=== PATIENT | male | born 1955 | race African-American/Black ===

== ENCOUNTER 2017-08-24 08:17 | Inpatient (IN) ==
[2017-08-24] MEDS ORDERED: DILTIAZEM 50 MG/10 ML VIAL IV STA (08:42)
[2017-08-24] MEDS ORDERED: SODIUM CHLORIDE 0.9% 500 ML IV STA (08:44)
[2017-08-24] MEDS ORDERED: DILTIAZEM 100 MG VIAL.ADD IV ONE (08:45)
[2017-08-24] MEDS ORDERED: MAGNESIUM SULF RIDER 50 ML IV ONE (08:46)
[2017-08-24] MEDS ORDERED: SODIUM CHLORIDE 0.9% 100 ML IV ONE (08:46)
[2017-08-24 08:52] LABS: Basophils % 0.4 % (0.0-0.8); Eosinophils % 0.6 % (0.00-10.9); Hematocrit 37.9 VOL% (42.0-52.0); Hemoglobin 13.1 GM/DL (14.0-18.0); Immature Granulocytes % 0.8 %; Immature Granulocytes Absolute 0.04 #; Lymphocytes # 1.8 10*3/uL (1.4-4.0); Lymphocytes % 36.6 % (21.2-54.2); Mean Corpuscular HGB Conc 34.6 GM/DL (32-36); Mean Corpuscular Hemoglobin 33 PG (27-34); Mean Corpuscular Volume 95.5 FL (87-102); Mean Platelet Volume 12.1 FL (9.6-12.0); Monocytes # 0.9 10*3/uL (0.11-0.8); Monocytes % 18.1 % (1.7-12.7); NRBC # 0.06 10*3/uL; Neutrophils # 2.1 10*3/uL (1.4-7.4); Neutrophils % 43.5 % (38.7-73.9); Platelet Count 70 T/CUMM (130-400); Red Blood Count 3.97 MC/CUMM (3.8-5.5); Red Cell Distribution Width 15.9 % (9.3-17.3); White Blood Count 4.9 T/CUMM (4-12)
[2017-08-24] MEDS ORDERED: MAGNESIUM SULF RIDER 2 GM in PREMIX 1 EACH IV STA (08:52)
[2017-08-24 09:00] LABS: PT Patient Result 10.7 SECS; Partial Thromboplastin Time 24.6 SECS (0-40)
[2017-08-24] MEDS: DILTIAZEM INJ 100 MG in SODIUM CHLORIDE 0.9% 100 ML IV SCH ×2 (09:06→19:30)
[2017-08-24 09:15] LABS: Apearance,Urine Slightly Hazy (Clear); Bacteria,Urine Occasional /HPF (Few); Blood, Urine Negative (Negative); Glucose,Urine (UA) Negative (Negative); Hyaline Casts,Urine 78 /LPF (0-3); Ketones,Urine 5 mg/dL (Negative); Mucus,Urine Occasional /LPF (Occasional); Nitrite,Urine Negative (Negative); Protein,Urine 100 MG/DL; RBC,Urine 6 /HPF (0-4); Squamous Epithelial Cell,Urine Occasional /HPF (0-10); Urine Color Amber (Yellow); Urine Specific Gravity 1.023 (1.001-1.035); WBC,Urine 23 /HPF (0-6)
[2017-08-24 09:16] LABS: Bilirubin,Urine Small mg/dL (Negative)
[2017-08-24 09:23] LABS: Band Neutrophils 3 % (0-10); Lymphocytes 35 % (20-55); Nucleated Red Blood Cells 3 (0-5); Total Cells Counted 100
[2017-08-24 09:24] LABS: Anisocytosis Slight; Macrocytosis Slight; Platelet Estimate Decreased; Segmented Neutrophils 43 % (50-85); Smudge Cells Few
[2017-08-24 09:29] LABS: Barbiturates Screen,Urine Negative (Negative); Benzodiazepines Screen,Urine Negative (Negative); Cannabinoid Screen,Urine Negative (Negative); Opiate Screen,Urine Negative (Negative); Phencyclidine Screen,Urine Negative (Negative)
[2017-08-24 09:31] LABS: Alanine Aminotransferase 54 U/L (16-61); Albumin 3.4 G/DL (3.4-5.0); Alkaline Phosphatase 158 U/L (45-117); Aspartate Amino Transferase 67 U/L (0-37); Blood Urea Nitrogen 16 MG/DL (7-18); Calcium 8.9 MG/DL (8.5-10.1); Glucose 114 MG/DL (74-106); Osmolality,Calculated 276.7 MOS/KG (273-304); Potassium 2.7 MMOL/L (3.5-5.1); Sodium 138 MMOL/L (136-145); Total Protein 7.4 G/DL (6.4-8.3); Troponin I Only < 0.015 NG/ML (0.00-0.045)
[2017-08-24] MEDS ORDERED: POTASSIUM CHLORIDE 20 MEQ TABLET PO STA (09:48)
[2017-08-24] MEDS ORDERED: FLUTICASONE/SALMETEROL 250-50 DISKUS 14 DOSE INH PRN (10:15)
[2017-08-24] MEDS ORDERED: DOCUSATE SODIUM 100 MG CAPSULE PO PRN (10:16)
[2017-08-24] MEDS ORDERED: ACETAMINOPHEN 325 MG TABLET PO PRN (10:16)
[2017-08-24] MEDS ORDERED: ONDANSETRON 4 MG/2 ML VIAL IV PRN (10:16)
[2017-08-24] MEDS ORDERED: diphenhydrAMINE CAP 25 MG CAPSULE PO PRN (10:16)
[2017-08-24] MEDS ORDERED: guaiFENesin/DM ER 600-30 MG TABLET PO PRN (10:16)
[2017-08-24] MEDS ORDERED: MAGNESIUM SULF RIDER 4 GM in PREMIX 1 EACH IV PRN (10:29)
[2017-08-24] MEDS ORDERED: ENOXAPARIN 30 MG/0.3 ML SYRINGE SUBCUT SCH (10:30)
[2017-08-24] MEDS: LEVOFLOXACIN INJ 750 MG in PREMIX 1 EACH IV SCH (11:03)
[2017-08-24] MEDS: amLODIPine 10 MG TABLET PO SCH (11:04)
[2017-08-24] MEDS: methylPREDNISolone SOD SUC 40 MG/1 ML VIAL IV SCH (11:04)
[2017-08-24] MEDS: SODIUM CHLORIDE 0.9% 1,000 ML IV SCH ×2 (11:04→17:40)
[2017-08-24] MEDS: PANTOPRAZOLE 40 MG TABLET PO SCH (11:04)
[2017-08-24] MEDS ORDERED: LORazepam 2 MG/1 ML VIAL IV PRN (14:55)
[2017-08-24] MEDS ORDERED: THIAMINE INJ 100 MG, FOLIC ACID INJ 1 MG, MULTIVITAMIN INJ 10 ML in SODIUM CHLORIDE 0.9... IV SCH (15:00)
[2017-08-24] MEDS: POTASSIUM CHLORIDE 20 MEQ TABLET PO PRN ×2 (15:13→17:27)
[2017-08-24] MEDS: MAGNESIUM SULF RIDER 2 GM in PREMIX 1 EACH IV PRN (15:14)
[2017-08-24] MEDS: ENOXAPARIN 80 MG/0.8 ML SYRINGE SUBCUT SCH (16:48)
[2017-08-24] MEDS: ASPIRIN EC 81 MG TABLET PO SCH (16:48)
[2017-08-24] MEDS: ALBUTEROL 2.5 MG/3 ML NEB RESP TX SCH ×3 (16:59→23:44)
[2017-08-24 17:24] LABS: Troponin I Only < 0.015 NG/ML (0.00-0.045)
[2017-08-24 17:25] LABS: Troponin I Only < 0.015 NG/ML (0.00-0.045)
[2017-08-24] MEDS ORDERED: amLODIPine 5 MG TABLET PO SCH (21:00)
[2017-08-24] MEDS: ASCORBIC ACID 500 MG TABLET PO SCH (21:10)
[2017-08-25] MEDS: methylPREDNISolone SOD SUC 40 MG/1 ML VIAL IV SCH ×2 (00:45→09:51)
[2017-08-25] MEDS: SODIUM CHLORIDE 0.9% 1,000 ML IV SCH ×2 (02:00→09:51)
[2017-08-25] MEDS: ALBUTEROL 2.5 MG/3 ML NEB RESP TX SCH ×6 (03:26→23:54)
[2017-08-25 04:29] LABS: Hematocrit 32.4 VOL% (42.0-52.0); Hemoglobin 10.8 GM/DL (14.0-18.0); Immature Granulocytes % 1.1 %; Immature Granulocytes Absolute 0.04 #; Lymphocytes # 0.5 10*3/uL (1.4-4.0); Lymphocytes % 14.8 % (21.2-54.2); Mean Corpuscular HGB Conc 33.3 GM/DL (32-36); Mean Corpuscular Hemoglobin 33 PG (27-34); Mean Corpuscular Volume 98.5 FL (87-102); Mean Platelet Volume 11.9 FL (9.6-12.0); Monocytes # 0.3 10*3/uL (0.11-0.8); Monocytes % 9.3 % (1.7-12.7); NRBC # 0.02 10*3/uL; Neutrophils # 2.7 10*3/uL (1.4-7.4); Neutrophils % 74.8 % (38.7-73.9); Platelet Count 62 T/CUMM (130-400); Red Blood Count 3.29 MC/CUMM (3.8-5.5); Red Cell Distribution Width 16.1 % (9.3-17.3); White Blood Count 3.7 T/CUMM (4-12)
[2017-08-25] MEDS: ENOXAPARIN 80 MG/0.8 ML SYRINGE SUBCUT SCH ×2 (04:54→15:17)
[2017-08-25 04:58] LABS: Albumin 2.9 G/DL (3.4-5.0); Bilirubin,Direct 0.39 MG/DL (0.0-0.20); Bilirubin,Indirect 0.4 MG/DL (0.0-1.0); Bilirubin,Total 0.8 MG/DL (0.2-1.0); Total Protein 6.6 G/DL (6.4-8.3)
[2017-08-25 05:01] LABS: Hypochromasia 1+; Platelet Estimate Decreased; Troponin I Only < 0.015 NG/ML (0.00-0.045)
[2017-08-25 05:02] LABS: Macrocytosis Slight
[2017-08-25 05:08] LABS: Osmolality,Calculated 278.5 MOS/KG (273-304); Potassium 4.6 MMOL/L (3.5-5.1); VLDL CHOLESTEROL 13.4 MG/DL
[2017-08-25 05:09] LABS: Risk Ratio 2.48; Thyroid Stimulating Hormone 0.269 uIU/ml (0.358-3.74)
[2017-08-25] MEDS: amLODIPine 10 MG TABLET PO SCH (08:54)
[2017-08-25] MEDS: PANTOPRAZOLE 40 MG TABLET PO SCH (08:55)
[2017-08-25] MEDS: ASPIRIN EC 81 MG TABLET PO SCH (08:55)
[2017-08-25] MEDS: ASCORBIC ACID 500 MG TABLET PO SCH ×2 (08:55→20:37)
[2017-08-25] MEDS: DILTIAZEM INJ 100 MG in SODIUM CHLORIDE 0.9% 100 ML IV SCH (08:56)
[2017-08-25] MEDS: LEVOFLOXACIN INJ 750 MG in PREMIX 1 EACH IV SCH (09:52)
[2017-08-25] MEDS ORDERED: DILTIAZEM 60 MG TABLET PO SCH (13:00)
[2017-08-25 14:04] LABS: Hepatitis A Ab IgM Quant 0.18 Index; Hepatitis A Ab IgM Result Negative (Negative); Hepatitis B Core IgM Quant 0.29 Index; Hepatitis B Core IgM Result Negative (Negative); Hepatitis B Surface Ag Quant < 0.10 Index; Hepatitis B Surface Ag Result Negative (Negative); Hepatitis C Virus Ab Quant 0.16 Index; Hepatitis C Virus Ab Result Negative (Negative)
[2017-08-25] MEDS: chlordiazePOXIDE 25 MG CAPSULE PO SCH ×2 (15:16→20:37)
[2017-08-25] MEDS: LEVOFLOXACIN 750 MG TABLET PO SCH (17:23)
[2017-08-25] MEDS: 1: THIAMINE INJ 100 MG, FOLIC ACID INJ 1 MG, MULTIVITAMIN INJ 10 ML in SODIUM CHLORIDE 0 IV SCH (18:30)
[2017-08-25] MEDS: predniSONE 10 MG TABLET PO SCH (20:37)
[2017-08-25] MEDS: METOPROLOL TARTRATE 50 MG TABLET PO SCH (20:37)
[2017-08-26] MEDS: MORPHINE 4 MG/1 ML VIAL IV PRN ×3 (00:01→15:42)
[2017-08-26] MEDS: ALBUTEROL 2.5 MG/3 ML NEB RESP TX SCH ×6 (02:58→23:06)
[2017-08-26] MEDS ORDERED: MORPHINE 4 MG/1 ML VIAL IV ONE (03:19)
[2017-08-26] MEDS: 1: THIAMINE INJ 100 MG, FOLIC ACID INJ 1 MG, MULTIVITAMIN INJ 10 ML in SODIUM CHLORIDE 0 IV SCH ×2 (04:10→12:43)
[2017-08-26 04:59] LABS: Hematocrit 30.7 VOL% (42.0-52.0); Hemoglobin 10.5 GM/DL (14.0-18.0); Immature Granulocytes % 1.3 %; Immature Granulocytes Absolute 0.05 #; Lymphocytes # 0.5 10*3/uL (1.4-4.0); Lymphocytes % 12.6 % (21.2-54.2); Mean Corpuscular HGB Conc 34.2 GM/DL (32-36); Mean Corpuscular Hemoglobin 34 PG (27-34); Mean Corpuscular Volume 98.1 FL (87-102); Mean Platelet Volume 11.7 FL (9.6-12.0); Monocytes # 0.5 10*3/uL (0.11-0.8); Monocytes % 12.4 % (1.7-12.7); NRBC # 0.04 10*3/uL; Neutrophils # 2.9 10*3/uL (1.4-7.4); Neutrophils % 73.7 % (38.7-73.9); Platelet Count 67 T/CUMM (130-400); Red Blood Count 3.13 MC/CUMM (3.8-5.5); Red Cell Distribution Width 16.5 % (9.3-17.3); White Blood Count 3.9 T/CUMM (4-12)
[2017-08-26 05:31] LABS: Calcium 7.8 MG/DL (8.5-10.1); Osmolality,Calculated 277.7 MOS/KG (273-304); Potassium 4.7 MMOL/L (3.5-5.1)
[2017-08-26 05:57] LABS: Platelet Estimate Decreased; Polychromasia Few
[2017-08-26 05:58] LABS: Target Cells Slight
[2017-08-26] MEDS: PANTOPRAZOLE 40 MG TABLET PO SCH (08:57)
[2017-08-26] MEDS: ASPIRIN EC 81 MG TABLET PO SCH (08:57)
[2017-08-26] MEDS: chlordiazePOXIDE 25 MG CAPSULE PO SCH ×3 (08:57→21:09)
[2017-08-26] MEDS: predniSONE 10 MG TABLET PO SCH ×2 (08:57→21:09)
[2017-08-26] MEDS: METOPROLOL TARTRATE 50 MG TABLET PO SCH ×2 (08:57→21:09)
[2017-08-26] MEDS: ASCORBIC ACID 500 MG TABLET PO SCH ×2 (08:57→21:09)
[2017-08-26] MEDS ORDERED: amLODIPine 5 MG TABLET PO SCH (09:00)
[2017-08-26] MEDS ORDERED: DILTIAZEM CD 120 MG CAPSULE PO SCH (12:00)
[2017-08-26] MEDS: DILTIAZEM 30 MG TABLET PO SCH ×4 (12:45→21:09)
[2017-08-26] MEDS: MAGNESIUM OXIDE 400 MG TABLET PO SCH ×2 (12:46→21:09)
[2017-08-26] MEDS: LEVOFLOXACIN 750 MG TABLET PO SCH (17:11)
[2017-08-26 19:43] LABS: Total Protein 6.4 G/DL (6.4-8.3)
[2017-08-27] MEDS: ALBUTEROL 2.5 MG/3 ML NEB RESP TX SCH ×6 (02:10→22:50)
[2017-08-27 05:37] LABS: Basophils % 0.2 % (0.0-0.8); Immature Granulocytes % 1.7 %; Immature Granulocytes Absolute 0.09 #; Lymphocytes # 0.5 10*3/uL (1.4-4.0); Lymphocytes % 9.1 % (21.2-54.2); Mean Corpuscular HGB Conc 33.3 GM/DL (32-36); Mean Corpuscular Hemoglobin 33 PG (27-34); Mean Corpuscular Volume 99.7 FL (87-102); Mean Platelet Volume 11.3 FL (9.6-12.0); Monocytes # 0.8 10*3/uL (0.11-0.8); Monocytes % 14.1 % (1.7-12.7); NRBC # 0.03 10*3/uL; Neutrophils % 74.9 % (38.7-73.9); Red Blood Count 3.01 MC/CUMM (3.8-5.5); Red Cell Distribution Width 16.4 % (9.3-17.3); White Blood Count 5.4 T/CUMM (4-12)
[2017-08-27 05:41] LABS: Platelet Count 81 T/CUMM (130-400)
[2017-08-27 06:10] LABS: Hypochromasia 1+; Platelet Estimate Decreased
[2017-08-27 06:13] LABS: Calcium 8.2 MG/DL (8.5-10.1); Osmolality,Calculated 281.4 MOS/KG (273-304); Potassium 4.8 MMOL/L (3.5-5.1)
[2017-08-27] MEDS: predniSONE 10 MG TABLET PO SCH ×2 (09:39→20:57)
[2017-08-27] MEDS: METOPROLOL TARTRATE 50 MG TABLET PO SCH ×2 (09:39→20:57)
[2017-08-27] MEDS: MAGNESIUM OXIDE 400 MG TABLET PO SCH ×2 (09:39→20:56)
[2017-08-27] MEDS: ASPIRIN EC 81 MG TABLET PO SCH (09:39)
[2017-08-27] MEDS: ASCORBIC ACID 500 MG TABLET PO SCH ×2 (09:39→20:56)
[2017-08-27] MEDS: chlordiazePOXIDE 25 MG CAPSULE PO SCH ×3 (09:39→20:56)
[2017-08-27] MEDS: PANTOPRAZOLE 40 MG TABLET PO SCH (09:39)
[2017-08-27] MEDS: DILTIAZEM 30 MG TABLET PO SCH ×4 (09:39→20:57)
[2017-08-27] MEDS: 1: THIAMINE INJ 100 MG, FOLIC ACID INJ 1 MG, MULTIVITAMIN INJ 10 ML in SODIUM CHLORIDE 0 IV SCH ×2 (13:11→20:56)
[2017-08-27] MEDS: LEVOFLOXACIN 750 MG TABLET PO SCH (16:29)
[2017-08-28] MEDS: 1: THIAMINE INJ 100 MG, FOLIC ACID INJ 1 MG, MULTIVITAMIN INJ 10 ML in SODIUM CHLORIDE 0 IV SCH ×3 (02:20→16:28)
[2017-08-28 02:32] LABS: Basophils % 0.2 % (0.0-0.8); Eosinophils % 0.6 % (0.00-10.9); Hematocrit 27.4 VOL% (42.0-52.0); Immature Granulocytes % 1.5 %; Immature Granulocytes Absolute 0.07 #; Lymphocytes # 0.7 10*3/uL (1.4-4.0); Lymphocytes % 14.8 % (21.2-54.2); Mean Corpuscular HGB Conc 32.8 GM/DL (32-36); Mean Corpuscular Hemoglobin 33 PG (27-34); Mean Corpuscular Volume 100.4 FL (87-102); Monocytes # 0.8 10*3/uL (0.11-0.8); Monocytes % 17.6 % (1.7-12.7); NRBC # 0.03 10*3/uL; Neutrophils # 3.1 10*3/uL (1.4-7.4); Neutrophils % 65.3 % (38.7-73.9); Platelet Count 95 T/CUMM (130-400); Red Blood Count 2.73 MC/CUMM (3.8-5.5); Red Cell Distribution Width 16.2 % (9.3-17.3); White Blood Count 4.7 T/CUMM (4-12)
[2017-08-28] MEDS: ALBUTEROL 2.5 MG/3 ML NEB RESP TX SCH ×5 (02:39→20:17)
[2017-08-28 02:56] LABS: Albumin 2.7 G/DL (3.4-5.0); Bilirubin,Total 0.6 MG/DL (0.2-1.0); Calcium 8.7 MG/DL (8.5-10.1); Osmolality,Calculated 283.4 MOS/KG (273-304); Potassium 4.8 MMOL/L (3.5-5.1); Total Protein 6.3 G/DL (6.4-8.3)
[2017-08-28] MEDS: MAGNESIUM SULF RIDER 2 GM in PREMIX 1 EACH IV PRN (03:36)
[2017-08-28 04:23] LABS: Anisocytosis 1+; Band Neutrophils 2 % (0-10); Lymphocytes 27 % (20-55); Nucleated Red Blood Cells 1 (0-5); Poikilocytosis 1+; Segmented Neutrophils 63 % (50-85); Total Cells Counted 100
[2017-08-28 04:24] LABS: Target Cells Slight
[2017-08-28] MEDS: METOPROLOL TARTRATE 50 MG TABLET PO SCH ×2 (09:16→22:07)
[2017-08-28] MEDS: ASCORBIC ACID 500 MG TABLET PO SCH ×2 (09:16→22:07)
[2017-08-28] MEDS: PANTOPRAZOLE 40 MG TABLET PO SCH (09:16)
[2017-08-28] MEDS: MAGNESIUM OXIDE 400 MG TABLET PO SCH ×2 (09:16→22:07)
[2017-08-28] MEDS: chlordiazePOXIDE 25 MG CAPSULE PO SCH ×3 (09:17→22:07)
[2017-08-28] MEDS: ASPIRIN EC 81 MG TABLET PO SCH (09:17)
[2017-08-28] MEDS: DILTIAZEM 30 MG TABLET PO SCH ×4 (09:17→22:07)
[2017-08-28] MEDS: predniSONE 10 MG TABLET PO SCH ×2 (09:17→22:07)
[2017-08-28] MEDS: LISINOPRIL 5 MG TABLET PO SCH (09:35)
[2017-08-28] MEDS: LEVOFLOXACIN 750 MG TABLET PO SCH (16:21)
[2017-08-29] MEDS: ALBUTEROL 2.5 MG/3 ML NEB RESP TX SCH ×7 (00:18→23:48)
[2017-08-29] MEDS: 1: THIAMINE INJ 100 MG, FOLIC ACID INJ 1 MG, MULTIVITAMIN INJ 10 ML in SODIUM CHLORIDE 0 IV SCH ×4 (02:29→21:05)
[2017-08-29 05:00] LABS: Basophils % 0.2 % (0.0-0.8); Eosinophils # 0.1 10*3/uL (0.0-0.87); Eosinophils % 1.2 % (0.00-10.9); Hematocrit 27.9 VOL% (42.0-52.0); Hemoglobin 9.3 GM/DL (14.0-18.0); Immature Granulocytes % 3.1 %; Immature Granulocytes Absolute 0.15 #; Lymphocytes # 0.8 10*3/uL (1.4-4.0); Lymphocytes % 17.1 % (21.2-54.2); Mean Corpuscular HGB Conc 33.3 GM/DL (32-36); Mean Corpuscular Hemoglobin 34 PG (27-34); Mean Corpuscular Volume 100.4 FL (87-102); Mean Platelet Volume 11.1 FL (9.6-12.0); Monocytes % 19.8 % (1.7-12.7); NRBC # 0.04 10*3/uL; Neutrophils # 2.8 10*3/uL (1.4-7.4); Neutrophils % 58.6 % (38.7-73.9); Platelet Count 115 T/CUMM (130-400); Red Blood Count 2.78 MC/CUMM (3.8-5.5); Red Cell Distribution Width 16.1 % (9.3-17.3); White Blood Count 4.8 T/CUMM (4-12)
[2017-08-29 05:24] LABS: Osmolality,Calculated 284.3 MOS/KG (273-304); Potassium 4.4 MMOL/L (3.5-5.1)
[2017-08-29 05:41] LABS: Band Neutrophils 1 % (0-10); Hypochromasia 1+; Lymphocytes 20 % (20-55); Myelocytes 1 %; Segmented Neutrophils 59 % (50-85); Total Cells Counted 100
[2017-08-29 05:42] LABS: Macrocytosis 1+; Platelet Estimate Adequate
[2017-08-29] MEDS: MAGNESIUM SULF RIDER 2 GM in PREMIX 1 EACH IV PRN (06:38)
[2017-08-29 07:37] LABS: Immunoglobulin A (Chem) 395 MG/DL (70-400); Immunoglobulin G (Chem) 873 MG/DL (700-1600); Immunoglobulin M (Chem) 30 MG/DL (40-230); Total Protein (Chem) 6.4 G/DL (6.4-8.3)
[2017-08-29] MEDS: LISINOPRIL 5 MG TABLET PO SCH (09:04)
[2017-08-29] MEDS: MAGNESIUM OXIDE 400 MG TABLET PO SCH ×3 (09:04→21:06)
[2017-08-29] MEDS: chlordiazePOXIDE 25 MG CAPSULE PO SCH ×3 (09:04→21:06)
[2017-08-29] MEDS: ASCORBIC ACID 500 MG TABLET PO SCH ×2 (09:04→21:06)
[2017-08-29] MEDS: predniSONE 10 MG TABLET PO SCH ×2 (09:05→21:06)
[2017-08-29] MEDS: METOPROLOL TARTRATE 50 MG TABLET PO SCH ×2 (09:05→21:06)
[2017-08-29] MEDS: DILTIAZEM 30 MG TABLET PO SCH (09:05)
[2017-08-29] MEDS: ASPIRIN EC 81 MG TABLET PO SCH (09:05)
[2017-08-29 09:59] LABS: Albumin (SPE) 3.8 G/DL (3.2-5.3); Albumin (SPE) Rel % 59.6 %; Alpha 1 (SPE) 0.2 G/DL (0.1-0.4); Alpha 1 (SPE) Rel % 2.9 %; Alpha 2 (SPE) 0.8 G/DL (0.4-1.0); Alpha 2 (SPE) Rel % 12.6 %; Beta (SPE) 0.8 G/DL (0.5-1.1)
[2017-08-29 10:00] LABS: Beta (SPE) Rel % 12.1 %; Gamma (SPE) 0.8 G/DL (0.7-1.7); Gamma (SPE) Rel % 12.8 %
[2017-08-29] MEDS: PANTOPRAZOLE 40 MG TABLET PO SCH (12:20)
[2017-08-29] MEDS ORDERED: DILTIAZEM 60 MG TABLET PO SCH (13:00)
[2017-08-29] MEDS: LISINOPRIL 10 MG TABLET PO SCH (16:24)
[2017-08-29] MEDS: LEVOFLOXACIN 750 MG TABLET PO SCH (16:37)
[2017-08-30] MEDS: ALBUTEROL 2.5 MG/3 ML NEB RESP TX SCH ×3 (03:14→10:55)
[2017-08-30 04:59] LABS: Basophils % 0.2 % (0.0-0.8); Eosinophils # 0.1 10*3/uL (0.0-0.87); Eosinophils % 1.1 % (0.00-10.9); Hematocrit 27.1 VOL% (42.0-52.0); Immature Granulocytes % 1.9 %; Lymphocytes # 0.9 10*3/uL (1.4-4.0); Lymphocytes % 16.6 % (21.2-54.2); Mean Corpuscular HGB Conc 33.2 GM/DL (32-36); Mean Corpuscular Hemoglobin 33 PG (27-34); Mean Corpuscular Volume 97.8 FL (87-102); Mean Platelet Volume 10.9 FL (9.6-12.0); Monocytes # 1.3 10*3/uL (0.11-0.8); Monocytes % 23.3 % (1.7-12.7); NRBC # 0.03 10*3/uL; Neutrophils # 3.1 10*3/uL (1.4-7.4); Neutrophils % 56.9 % (38.7-73.9); Platelet Count 140 T/CUMM (130-400); Red Blood Count 2.77 MC/CUMM (3.8-5.5); Red Cell Distribution Width 16.1 % (9.3-17.3); White Blood Count 5.4 T/CUMM (4-12)
[2017-08-30 05:25] LABS: Band Neutrophils 1 % (0-10); Eosinophils 1 % (0-10); Giant Platelets Few; Hypochromasia 1+; Lymphocytes 17 % (20-55); Platelet Estimate Normal; Segmented Neutrophils 60 % (50-85); Total Cells Counted 100
[2017-08-30 05:26] LABS: Macrocytosis Slight
[2017-08-30 05:30] LABS: Calcium 9.4 MG/DL (8.5-10.1); Osmolality,Calculated 287.1 MOS/KG (273-304); Potassium 3.9 MMOL/L (3.5-5.1)
[2017-08-30] MEDS: MAGNESIUM SULF RIDER 2 GM in PREMIX 1 EACH IV PRN (06:24)
[2017-08-30] MEDS: MAGNESIUM OXIDE 400 MG TABLET PO SCH (08:51)
[2017-08-30] MEDS: chlordiazePOXIDE 25 MG CAPSULE PO SCH (08:51)
[2017-08-30] MEDS: ASCORBIC ACID 500 MG TABLET PO SCH (08:52)
[2017-08-30] MEDS: ASPIRIN EC 81 MG TABLET PO SCH (08:52)
[2017-08-30] MEDS: LISINOPRIL 10 MG TABLET PO SCH (08:52)
[2017-08-30] MEDS: PANTOPRAZOLE 40 MG TABLET PO SCH (08:53)
[2017-08-30] MEDS: predniSONE 10 MG TABLET PO SCH (08:53)
[2017-08-30] MEDS ORDERED: DILTIAZEM CD 240 MG CAPSULE PO SCH (09:00)
[2017-08-30] MEDS: METOPROLOL TARTRATE 50 MG TABLET PO SCH (09:20)
[2017-08-30 12:00] VITALS: BP 151/83
[2017-09-01 05:33] LABS: Immuno Free Light Chain Kappa 2.78 MG/DL (0.33-1.94); Immuno Free Light Chain Lambda 3.08 MG/DL (0.57-2.63)
== END 2017-08-30 12:45 | disposition home or self-care (01) | DRG 309 ==
LOC: N.ED 08:17 → N.EDINP 10:16 → SUATTDRO 10:16 → N.TELEN 12:39
PROVIDERS: ADMIT Internal Medicine; ATTEND Internal Medicine

== ENCOUNTER 2017-11-29 14:10 | Inpatient (IN) ==
[2017-11-29 14:32] LABS: Basophils % 0.5 % (0.0-0.8); Eosinophils % 0.5 % (0.00-10.9); Hematocrit 44.2 VOL% (42.0-52.0); Hemoglobin 15.1 GM/DL (14.0-18.0); Immature Granulocytes % 0.5 %; Immature Granulocytes Absolute 0.02 #; Lymphocytes # 1.8 10*3/uL (1.4-4.0); Lymphocytes % 44.4 % (21.2-54.2); Mean Corpuscular HGB Conc 34.2 GM/DL (32-36); Mean Corpuscular Hemoglobin 32 PG (27-34); Mean Corpuscular Volume 92.7 FL (87-102); Mean Platelet Volume 10.8 FL (9.6-12.0); Monocytes # 0.6 10*3/uL (0.11-0.8); Monocytes % 15.3 % (1.7-12.7); NRBC # 0.04 10*3/uL; Neutrophils # 1.6 10*3/uL (1.4-7.4); Neutrophils % 38.8 % (38.7-73.9); Platelet Count 160 T/CUMM (130-400); Red Blood Count 4.77 MC/CUMM (3.8-5.5); Red Cell Distribution Width 15.9 % (9.3-17.3); White Blood Count 4.1 T/CUMM (4-12)
[2017-11-29 14:41] LABS: PT Patient Result 10.5 SECS
[2017-11-29 15:01] LABS: Albumin 3.4 G/DL (3.4-5.0); Bilirubin,Total 0.8 MG/DL (0.2-1.0); Calcium 10.2 MG/DL (8.5-10.1); Osmolality,Calculated 287.8 MOS/KG (273-304); Potassium 3.3 MMOL/L (3.5-5.1); Thyroid Stimulating Hormone 0.911 uIU/ml (0.358-3.74); Total Protein 7.5 G/DL (6.4-8.3)
[2017-11-29 17:43] LABS: PT Patient Result 10.7 SECS
[2017-11-29 18:02] LABS: Lactic Acid 2.3 MMOL/L (0.4-2.0)
[2017-11-29 18:37] LABS: Alanine Aminotransferase 91 U/L (16-61); Albumin 3.5 G/DL (3.4-5.0); Alkaline Phosphatase 139 U/L (45-117); Aspartate Amino Transferase 120 U/L (0-37); Blood Urea Nitrogen 12 MG/DL (7-18); Calcium 10.4 MG/DL (8.5-10.1); Glucose 102 MG/DL (74-106); Osmolality,Calculated 285.8 MOS/KG (273-304); Potassium 3.6 MMOL/L (3.5-5.1); Sodium 144 MMOL/L (136-145); Total Protein 8.2 G/DL (6.4-8.3)
[2017-11-29 18:49] LABS: Apearance,Urine CLEAR (Clear); Bilirubin,Urine Negative (Negative); Blood, Urine Negative (Negative); Glucose,Urine (UA) Negative (Negative); Hyaline Casts,Urine 32 /LPF (0-3); Ketones,Urine 20 mg/dL (Negative); Mucus,Urine Occasional /LPF (Occasional); Nitrite,Urine Negative (Negative); Protein,Urine 100 MG/DL; RBC,Urine 1 /HPF (0-4); Squamous Epithelial Cell,Urine Occasional /HPF (0-10); Urine Color Yellow (Yellow); Urine Specific Gravity 1.013 (1.001-1.035); WBC,Urine 2 /HPF (0-6)
[2017-11-29 20:20] LABS: Barbiturates Screen,Urine Negative (Negative); Benzodiazepines Screen,Urine Negative (Negative); Cannabinoid Screen,Urine Negative (Negative); Opiate Screen,Urine Negative (Negative); Phencyclidine Screen,Urine Negative (Negative)
[2017-11-29 23:08] LABS: Lactic Acid 2.3 MMOL/L (0.4-2.0)
[2017-11-30 04:12] LABS: Calcium 9.4 MG/DL (8.5-10.1); Osmolality,Calculated 279.3 MOS/KG (273-304); Potassium 3.6 MMOL/L (3.5-5.1)
[2017-11-30 04:16] LABS: Lactic Acid 0.8 MMOL/L (0.4-2.0)
[2017-11-30 04:20] LABS: Basophils % 0.4 % (0.0-0.8); Lymphocytes # 1.5 10*3/uL (1.4-4.0); Mean Platelet Volume 11.1 FL (9.6-12.0); NRBC # 0.04 10*3/uL
[2017-11-30 04:26] LABS: Alanine Aminotransferase 65 U/L (16-61); Albumin 2.9 G/DL (3.4-5.0); Alkaline Phosphatase 114 U/L (45-117); Aspartate Amino Transferase 57 U/L (0-37); Blood Urea Nitrogen 13 MG/DL (7-18); Calcium 9.5 MG/DL (8.5-10.1); Glucose 80 MG/DL (74-106); Osmolality,Calculated 279.3 MOS/KG (273-304); Potassium 3.6 MMOL/L (3.5-5.1); Sodium 141 MMOL/L (136-145); Total Protein 6.6 G/DL (6.4-8.3)
[2017-11-30 04:29] LABS: Eosinophils % 0.4 % (0.00-10.9); Hematocrit 36.3 VOL% (42.0-52.0); Immature Granulocytes % 0.4 %; Immature Granulocytes Absolute 0.02 #; Lymphocytes % 32.2 % (21.2-54.2); Mean Corpuscular HGB Conc 34.2 GM/DL (32-36); Mean Corpuscular Hemoglobin 32 PG (27-34); Mean Corpuscular Volume 94.5 FL (87-102); Monocytes # 0.7 10*3/uL (0.11-0.8); Monocytes % 15.2 % (1.7-12.7); Neutrophils # 2.3 10*3/uL (1.4-7.4); Neutrophils % 51.4 % (38.7-73.9); Platelet Count 127 T/CUMM (130-400); Red Blood Count 3.84 MC/CUMM (3.8-5.5); Red Cell Distribution Width 15.6 % (9.3-17.3); White Blood Count 4.5 T/CUMM (4-12)
[2017-11-30 04:31] LABS: Hemoglobin 12.4 GM/DL (14.0-18.0)
[2017-11-30 04:45] LABS: Hypochromasia 1+; Platelet Estimate Decreased
[2017-11-30 04:46] LABS: Macrocytosis Slight
[2017-12-02 04:16] LABS: Basophils % 0.3 % (0.0-0.8); Eosinophils # 0.1 10*3/uL (0.0-0.87); Eosinophils % 3.1 % (0.00-10.9); Hematocrit 36.9 VOL% (42.0-52.0); Hemoglobin 12.3 GM/DL (14.0-18.0); Immature Granulocytes % 0.5 %; Immature Granulocytes Absolute 0.02 #; Lymphocytes # 1.5 10*3/uL (1.4-4.0); Lymphocytes % 38.8 % (21.2-54.2); Mean Corpuscular HGB Conc 33.3 GM/DL (32-36); Mean Corpuscular Hemoglobin 31 PG (27-34); Mean Corpuscular Volume 93.7 FL (87-102); Mean Platelet Volume 11.4 FL (9.6-12.0); Monocytes # 0.6 10*3/uL (0.11-0.8); Monocytes % 15.1 % (1.7-12.7); Neutrophils # 1.6 10*3/uL (1.4-7.4); Neutrophils % 42.2 % (38.7-73.9); Platelet Count 110 T/CUMM (130-400); Red Blood Count 3.94 MC/CUMM (3.8-5.5); Red Cell Distribution Width 15.6 % (9.3-17.3); White Blood Count 3.8 T/CUMM (4-12)
[2017-12-02 05:11] LABS: Calcium 8.6 MG/DL (8.5-10.1); Osmolality,Calculated 282.3 MOS/KG (273-304); Potassium 3.3 MMOL/L (3.5-5.1)
[2017-12-02 12:02] VITALS: BP 143/97
== END 2017-12-02 12:47 | disposition home or self-care (01) | DRG 308 ==
LOC: N.ED 14:10 → N.EDINP 18:44 → N.CC 20:31 → N.TELES 11-30 18:46